=== PATIENT | female | born 1930 | race Caucasian/White ===

== ENCOUNTER 2018-03-17 07:04 | Emergency (ER) | payer OTHER ==
--- NOTE | 2018-03-17 08:14 | RAD REPORT ---
EXAM DESCRIPTION: CT - Head C Spine Cap Wo Con - 03/17/2018 7:54 am CLINICAL HISTORY: Trauma, head and neck injury. Chest, abdomen and pelvis pain. PAIN COMPARISON: Head Brain Wo Cont dated 08/29/2015; HEAD BRAIN W O CONTRAST dated 07/16/2014; CT-STROKE B RAIN W/O CONTRAST dated 02/17/2014 TECHNIQUE: CT head without contrast. CT cervical spine without contrast with coronal and sagittal reformatted images. CT chest, abdomen and pelvis without contrast with coronal and sagittal reformatted images of the [facility] [place]. All CT scans are performed using dose optimization technique as appropriate and may include automated exposure control or mA/KV adjustment according to patient size. FINDINGS: CT HEAD WITHOUT CONTRAST: No intracranial hemorrhage, hydrocephalus or extra-axial fluid collection. Moderate generalized brain atrophy is present with moderate periventricular and deep white matter chronic microvascular ischemi c changes. No areas of brain edema or midline shift. The paranasal sinuses and mastoids are clear. The calvarium is intact. CT CERVICAL SPINE WITHOUT CONTRAST: No fracture or subluxation. Spondylosis is present with endplate osteophytosis at C5-6. Minimal degen erative anterolisthesis of C6 on 7 is present. The prevertebral soft tissues are normal in thickness. CT CHEST, ABDOMEN, PELVIS WITHOUT CONTRAST: NOTE: Lack of contrast is a significant limitation in the assessment of trauma related findings. Spec ifically, solid organ, vascular and bowel evaluation is significantly limited. The lungs are emphysematous but clear.Prominent thyroid goiter is present.No pneumothorax or pericard ial/pleural fluid. No evidence of intra-abdominal visceral injury, free fluid or free air is seen within the above detai led limitations. No concerning pelvic findings. No fractures. IMPRESSION: Negative for acute traumatic findings within the above detailed limitations.
--- NOTE | 2018-03-17 08:22 | RAD REPORT ---
EXAM DESCRIPTION: RAD - Chest Single View - 03/17/2018 7:50 am CLINICAL HISTORY: COUGH Chest pain. COMPARISON: CHEST SINGLE VIEW dated 07/16/2014; CHEST SINGLE VIEW dated 02/18/2014; CHEST SINGLE VIEW dated 02/17/2014 FINDINGS: Portable technique limits examination quality. The lungs are grossly clear. The heart is mildly prominent in size. No displaced fractures. IMPRESSION: No acute intrathoracic process suspected.
[2018-03-17 09:45] LABS: Protime INR 1.03
[2018-03-17 09:48] LABS: Absolute Lymphocytes (CBC) 1.6 K/uL (0.7-4.9); Absolute Monocytes 0.6 K/uL (0.1-1.3); Absolute Neutrophil 3.8 K/uL (1.8-8.0); Basophils % 1.2 % (0-1.3); Eosinophils % 2.4 % (0-4.4); Hematocrit 36.7 % (36.0-45.0); MCH 30.7 pg (27.0-35.0); MCV 90.7 fL (80-100); MPV 8.5 fL (7.6-11.3); Monocytes % 9.9 % (3.3-12.3); RBC Red Blood Cell Count 4.05 M/uL (3.86-4.86)
[2018-03-17] MEDS ORDERED: NA CHLORIDE 0.9% 0 ML ONE (09:50)
[2018-03-17 10:09] LABS: ALT/SGPT 24 U/L (12-78); AST/SGOT 19 U/L (15-37); Albumin 3.8 g/dL (3.4-5.0); Alkaline Phosphatase 85 U/L (45-117); BUN Blood Urea Nitrogen 20 mg/dL (7-18); Bicarbonate 31 mmol/L (21-32); Bilirubin Direct 0.2 mg/dL (0-0.2); Bilirubin Total 0.6 mg/dL (0.2-1.0); Glucose Level 104 mg/dL (74-106); Magnesium 2.2 mg/dL (1.8-2.4); NT PRO-BNP 178 pg/mL (<450); Protein, Total 8.2 g/dL (6.4-8.2); Sodium Level 138 mmol/L (136-145); Troponin (Emerg Dept Use Only) < 0.02 ng/mL (0.0-0.045)
[2018-03-17] MEDS ORDERED: NA CHLORIDE 0.9% 250 ML ONE (10:10)
[2018-03-17] MEDS ORDERED: CEFTRIAXONE/SWI 1gm 1 GM/10 ML SYR ONE (10:10)
--- NOTE | 2018-03-17 10:20 | ER ---
Nurse's Notes [facility] Name: Kristen Cuba Age: 87 yrs Sex: Female : 1930 Arrival Date: 03/17/2018 Time: 07:06 Bed 18 Private MD: Diagnosis: Fall due to bumping against object;Dementia in other diseases classified elsewhere;Cystitis;Low back pain Presentation: 03/17 07:07 Presenting complaint:. 07:08 Presenting complaint: Patient states: I slid out of bed getting up this morning, landed ch on my bottom. my lower back hurts and my neck hurts. Presenting complaint: EMS states: pt was in her socks and slid down out of bed, landing on her bottom, then said she fell sideways. pt was still laying on the floor in an awkward position when we arrived, reported immediate relief after being repositioned. Transition of care: patient was not received from another setting of care. Onset of symptoms was March 17, 2018 at 06:45. Risk Assessment: Do you want to hurt yourself or someone else? Patient reports no desire to harm self or others. Initial Sepsis Screen: Does the patient meet any 2 criteria? No. Patient's initial sepsis screen is negative. Does the patient have a suspected source of infection? No. Patient's initial sepsis screen is negative. Care prior to arrival: None. 07:08 Method Of Arrival: Ambulatory 07:08 Acuity: SYL 4 07:19 Note family reports pt likes to crawl out of bed with the call cummings then hit the call cummings. she has been doing this for years. Historical: - Allergies: 07:27 Codeine; ch - Home Meds: 07:27 citalopram 20 mg tab 1 tab once daily [Active]; famotidine 20 mg Oral tab 1 tab 2 times ch per day [Active]; hydrochlorothiazide 12.5 mg Oral tab 1 tab 2 times per day [Active]; risperidone 1 mg oral tab 1 tab once daily [Active]; trazodone 50 mg Oral tab 1 tab nightly [Active]; meclizine 25 mg Oral tab 1 tab 3 times per day [Active]; - PMHx: 07:27 Dementia; breast cancer; Hypertension; Depression; masectomy L; GERD; Arthritis; ch Anxiety; TIA; Gout; - PSHx: 07:27 L sided masectomy; ch - Immunization history:: Adult Immunizations up to date. - Social history:: Smoking status: Patient/guardian denies using tobacco. - Ebola Screening: : Patient negative for fever greater than or equal to 101.5 degrees Fahrenheit, and additional compatible Ebola Virus Disease symptoms Patient denies exposure to infectious person Patient denies travel to an Ebola-affected area in the 21 days before illness onset No symptoms or risks identified at this time. Screenin:50 Abuse screen: Denies threats or abuse. Denies injuries from another. Nutritional ch screening: No deficits noted. Tuberculosis screening: No symptoms or risk factors identified. Fall Risk None identified. Assessment: 07:50 General: Appears in no apparent distress. comfortable, Behavior is calm, cooperative, ch appropriate for age. Pain: Complains of pain in buttocks and back Pain currently is 4 out of 10 on a pain scale. Pain began suddenly, Unable to use pain scale. pt has dementia and keeps changing location and amount of pain. Neuro: Level of Consciousness is awake, alert, obeys commands, Oriented to person, place, [employer] Supervisor are equal bilaterally Moves all extremities. Weakness in bilateral family reports that is normal, and this is how the pt usually moves and functions. Cardiovascular: Denies chest pain, shortness of breath. Respiratory: No deficits noted. Airway is patent Respiratory effort is even, unlabored. GI: No signs and/or symptoms were reported involving the gastrointestinal system. Abdomen is flat, non-distended, Bowel sounds present X 4 quads. Abd is soft and non tender X 4 quads. : No signs and/or symptoms were reported regarding the genitourinary system. Derm: Skin is intact, is fragile, is thin, Skin is dry, Skin is pale. Musculoskeletal: No signs and/or symptoms reported regarding the musculoskeletal system. Circulation, motion, and sensation intact. 09:19 Reassessment: Patient appears in no apparent distress at this time. No changes from previously documented assessment. Patient and/or family updated on plan of care and expected duration. Pain level reassessed. 10:39 Reassessment: Patient appears in no apparent distress at this time. Patient and/or ch family updated on plan of care and expected duration. Pain level reassessed. Patient states feeling better. Patient states symptoms have improved. Vital Signs: 07:27 BP 167 / 71; Pulse 55; Resp 18; Temp 98.3; Pulse Ox 99% on R/A; Weight 51.71 kg; Height 5 ft. 4 in. (162.56 cm); Pain 0/10; 07:50 BP 155 / 78; Pulse 61; Resp 18; Temp 98.3; Pulse Ox 99% on R/A; Pain 0/10; ch 09:19 BP 178 / 81; Pulse 59; Resp 20; Pulse Ox 99% on R/A; Pain 0/10; ch 10:39 BP 168 / 92; Pulse 55; Resp 14; Temp 97.9; Pulse Ox 99% on R/A; Pain 0/10; ch 07:27 Body Mass Index 19.57 (51.71 kg, 162.56 cm) ED Course: 07:06 Patient arrived in ED. ds1 07:06 Tracee Amin, RN is Primary Nurse. ch 07:12 Triage completed. 07:21 Dayton Shin MD is Attending Physician. [facility] 07:27 Arm band placed on left wrist. Patient placed in an exam room, on a stretcher, on pulse oximetry. 07:50 XRAY Chest (1 view) In Process Unspecified. EDMS 07:50 No apparent distress. Resting quietly. ch 07:50 Patient has correct armband on for positive identification. Fall risk band placed. ch Placed in gown. Bed in low position. Call light in reach. Side rails up X2. Adult w/ patient. Pulse ox on. NIBP on. Warm blanket given. 07:54 CT Traumagram (Head C Spine CAP wo con) In Process Unspecified. EDMS 07:54 CT completed. Patient tolerated procedure well. Patient moved to CT via stretcher. vr Patient moved back from CT. 08:09 EKG done, by obstetrics tech. reviewed by Dayton Shin MD. at1 08:35 No provider procedures requiring assistance completed. Missed attempt(s): 22 gauge in right forearm. antecubital area. attemped by Jill Regalado Bleeding controlled, band aid applied, catheter tip intact. 08:35 Initial lab(s) drawn, by ED staff, sent to lab. 08:35 Urine collected:. Straight cath inserted, using sterile technique, 16 Fr. Specimen obtained. pt output 1000 mL. 09:34 Lab(s) recollected, by me, sent to lab. Inserted saline lock: 22 gauge in right ch antecubital area, using aseptic technique. Blood collected. 10:39 IV discontinued, intact, bleeding controlled, No redness/swelling at site. Pressure dressing applied. Administered Medications: 10:05 Drug: Rocephin - (cefTRIAXone) 1 grams Route: IVPB; Infused Over: 30 mins; Site: right ch antecubital; 10:38 Follow up: IV Status: Completed infusion; IV Intake: 10ml 10:18 Drug: NS 0.9% 1000 ml Route: IV; Rate: 125 ml/hr; Site: right antecubital; 10:38 Follow up: IV Status: Completed infusion; IV Intake: 250ml Intake: 10:38 IV: 10ml; Total: 10ml. 10:38 IV: 250ml; Total: 260ml. Outcome: 10:20 Discharge ordered by . [facility] 10:39 Discharged to home via wheelchair, with family. 10:39 Condition: stable 10:39 Discharge instructions given to patient, family, Instructed on discharge instructions, follow up and referral plans. medication usage, Demonstrated understanding of instructions, follow-up care, medications, Prescriptions given X 1. 10:50 Patient left the ED. Signatures: Dispatcher [employer] Tracee Lobo, Dayton Mercado RN, ch, MD MD cha Sanford, Camilla ds1 Pita Phillips Amanda, grocery clerk selling EKG Tat1
--- NOTE | 2018-03-17 10:20 | EDPHYS ---
Physician Documentation [facility] Name: Kristen Cuba Age: 87 yrs Sex: Female : 1930 Arrival Date: 03/17/2018 Time: 07:06 Bed 18 Private MD: ED Physician Dayton Shin HPI: 03/17 07:38 This 87 yrs old Female presents to ER via Ambulatory with complaints of fall mike out of bed, dementia. 07:38 Details of fall: The patient fell from a height, off furniture, approximately 3 feet. mike Onset: The symptoms/episode began/occurred just prior to arrival, this morning. Associated injuries: The patient sustained injury to the head. Severity of symptoms: At their worst the symptoms were mild, in the emergency department the symptoms are unchanged. The patient has not experienced similar symptoms in the past. Historical: - Allergies: 07:27 Codeine; ch - Home Meds: 07:27 citalopram 20 mg tab 1 tab once daily [Active]; famotidine 20 mg Oral tab 1 tab 2 times ch per day [Active]; hydrochlorothiazide 12.5 mg Oral tab 1 tab 2 times per day [Active]; risperidone 1 mg oral tab 1 tab once daily [Active]; trazodone 50 mg Oral tab 1 tab nightly [Active]; meclizine 25 mg Oral tab 1 tab 3 times per day [Active]; - PMHx: 07:27 Dementia; breast cancer; Hypertension; Depression; masectomy L; GERD; Arthritis; ch Anxiety; TIA; Gout; - PSHx: 07:27 L sided masectomy; ch - Immunization history:: Adult Immunizations up to date. - Social history:: Smoking status: Patient/guardian denies using tobacco. - Ebola Screening: : Patient negative for fever greater than or equal to 101.5 degrees Fahrenheit, and additional compatible Ebola Virus Disease symptoms Patient denies exposure to infectious person Patient denies travel to an Ebola-affected area in the 21 days before illness onset No symptoms or risks identified at this time. ROS: 07:39 Constitutional: Negative for fever, chills, and weight loss, Eyes: Negative for injury, mike pain, redness, and discharge, ENT: Negative for injury, pain, and discharge, Neck: Negative for injury, pain, and swelling, Cardiovascular: Negative for chest pain, palpitations, and edema, Respiratory: Negative for shortness of breath, cough, wheezing, and pleuritic chest pain, Abdomen/GI: Negative for abdominal pain, nausea, vomiting, diarrhea, and constipation, : Negative for injury, bleeding, discharge, and swelling, MS/Extremity: Negative for injury and deformity, Skin: Negative for injury, rash, and discoloration, Psych: Negative for depression, anxiety, suicide ideation, homicidal ideation, and hallucinations, Allergy/Immunology: Negative for hives, rash, and allergies, Endocrine: Negative for neck swelling, polydipsia, polyuria, polyphagia, and marked weight changes, Hematologic/Lymphatic: Negative for swollen nodes, abnormal bleeding, and unusual bruising. 07:39 Back: Positive for pain at rest, pain with movement. 07:39 Neuro: Positive for altered mental status. Exam: 07:39 Constitutional: This is a well developed, well nourished patient who is awake, alert, mike and in no acute distress. Head/Face: Normocephalic, atraumatic. Eyes: Pupils equal round and reactive to light, extra-ocular motions intact. Lids and lashes normal. Conjunctiva and sclera are non-icteric and not injected. Cornea within normal limits. Periorbital areas with no swelling, redness, or edema. ENT: Nares patent. No nasal discharge, no septal abnormalities noted. Tympanic membranes are normal and external auditory canals are clear. Oropharynx with no redness, swelling, or masses, exudates, or evidence of obstruction, uvula midline. Mucous membranes moist. Neck: Trachea midline, no thyromegaly or masses palpated, and no cervical lymphadenopathy. Supple, full range of motion without nuchal rigidity, or vertebral point tenderness. No Meningismus. Chest/axilla: Normal chest wall appearance and motion. Nontender with no deformity. No lesions are appreciated. Cardiovascular: Regular rate and rhythm with a normal S1 and S2. No gallops, murmurs, or rubs. Normal PMI, no JVD. No pulse deficits. Respiratory: Lungs have equal breath sounds bilaterally, clear to auscultation and percussion. No rales, rhonchi or wheezes noted. No increased work of breathing, no retractions or nasal flaring. Abdomen/GI: Soft, non-tender, with normal bowel sounds. No distension or tympany. No guarding or rebound. No evidence of tenderness throughout. Back: No spinal tenderness. No costovertebral tenderness. Full range of motion. Skin: Warm, dry with normal turgor. Normal color with no rashes, no lesions, and no evidence of cellulitis. MS/ Extremity: Pulses equal, no cyanosis. Neurovascular intact. Full, normal range of motion. Psych: Awake, alert, with orientation to person, place and time. Behavior, mood, and affect are within normal limits. 07:39 Neuro: Orientation: is normal, appropriate for stated age, no acute changes, Mentation: slow to respond, Memory: no acute changes, Cranial nerves: grossly normal, is grossly normal based on the patient's age, no acute changes, Cerebellar function: is grossly normal, is grossly normal based on the patient's age, no acute changes, Motor: is normal, Gait: not applicable seizure activity, is not displayed by the patient. Vital Signs: 07:27 BP 167 / 71; Pulse 55; Resp 18; Temp 98.3; Pulse Ox 99% on R/A; Weight 51.71 kg; Height 5 ft. 4 in. (162.56 cm); Pain 0/10; 07:50 BP 155 / 78; Pulse 61; Resp 18; Temp 98.3; Pulse Ox 99% on R/A; Pain 0/10; ch 09:19 BP 178 / 81; Pulse 59; Resp 20; Pulse Ox 99% on R/A; Pain 0/10; ch 10:39 BP 168 / 92; Pulse 55; Resp 14; Temp 97.9; Pulse Ox 99% on R/A; Pain 0/10; 07:27 Body Mass Index 19.57 (51.71 kg, 162.56 cm) MDM: 07:21 Patient medically screened. [facility] 07:41 Data reviewed: vital signs, nurses notes, lab test result(s), EKG, radiologic studies, [facility] CT scan, plain films. 03/17 07:33 Order name: Basic Metabolic Panel; Complete Time: 10:19 [facility] 03/17 07:33 Order name: CBC with Diff; Complete Time: 10:19 [facility] 03/17 07:33 Order name: LFT's; Complete Time: 10:19 [facility] 03/17 07:33 Order name: Magnesium; Complete Time: 10:19 [facility] 03/17 07:33 Order name: NT PRO-BNP; Complete Time: 10:19 [facility] 03/17 07:33 Order name: PT-INR; Complete Time: 10:19 [facility] 03/17 07:33 Order name: Troponin (emerg Dept Use Only); Complete Time: 10:19 [facility] 03/17 07:33 Order name: XRAY Chest (1 view); Complete Time: 09:33 [facility] 03/17 07:33 Order name: EKG; Complete Time: 07:33 [facility] 03/17 07:33 Order name: CT Traumagram (Head C Spine CAP wo con); Complete Time: 09:33 [facility] 03/17 07:33 Order name: Urine Culture [facility] 03/17 10:32 Order name: Urine Dipstick--Ancillary (enter results) 03/17 07:33 Order name: Cardiac monitoring; Complete Time: 09:24 [facility] 03/17 07:33 Order name: EKG - Nurse/Tech; Complete Time: 09:24 [facility] 03/17 07:33 Order name: IV Saline Lock; Complete Time: 09:24 [facility] 03/17 07:33 Order name: Labs collected and sent; Complete Time: 09:24 [facility] 03/17 07:33 Order name: O2 Per Protocol; Complete Time: 09:24 [facility] 03/17 07:33 Order name: O2 Sat Monitoring; Complete Time: 09:24 [facility] 03/17 07:33 Order name: Urine Dipstick-Ancillary (obtain specimen); Complete Time: 09:22 [facility] Administered Medications: 10:05 Drug: Rocephin - (cefTRIAXone) 1 grams Route: IVPB; Infused Over: 30 mins; Site: right antecubital; 10:38 Follow up: IV Status: Completed infusion; IV Intake: 10ml 10:18 Drug: NS 0.9% 1000 ml Route: IV; Rate: 125 ml/hr; Site: right antecubital; 10:38 Follow up: IV Status: Completed infusion; IV Intake: 250ml Disposition: 03/17/18 10:20 Discharged to Home. Impression: Fall due to bumping against object, Dementia in other diseases classified elsewhere, Cystitis, Low back pain. - Condition is Stable. - Discharge Instructions: Dementia, Fall Prevention in the Home, Urinary Tract Infection, Adult, Dementia, [id number]. - Prescriptions for Cipro 250 mg Oral Tablet - take 1 tablet by ORAL route every 12 hours; 10 tablet. - Medication Reconciliation Form, Thank You Letter, Antibiotic Education, Prescription Opioid Use form. - Follow up: Private Physician; When: 2 - 3 days; Reason: Recheck today's complaints, Continuance of care, Re-evaluation by your physician. - Problem is new. - Symptoms have improved. Signatures: Dispatcher [employer] EDTracee Mcdaniel RN RN ch Anderson, Corey, MD MD cha Corrections: (The following items were deleted from the chart) 10:50 10:20 03/17/2018 10:20 Discharged to Home. Impression: Fall due to bumping against ch object; Dementia in other diseases classified elsewhere; Cystitis; Low back pain. Condition is Stable. Discharge Instructions: Dementia, Fall Prevention in the Home, Dementia, [id number], Urinary Tract Infection, Adult. Prescriptions for Cipro 250 mg Oral Tablet - take 1 tablet by ORAL route every 12 hours; 10 tablet. and Forms are Medication Reconciliation Form, Thank You Letter, Antibiotic Education, Prescription Opioid Use. Follow up: Private Physician; When: 2 - 3 days; Reason: Recheck today's complaints, Continuance of care, Re-evaluation by your physician. Problem is new. Symptoms have improved. mike
[2018-03-17 10:56] VITALS: O2SAT 99
[2018-03-17 10:59] VITALS: BP 168/92; TEMP 97.9
[2018-03-17 11:16] LABS: Urine Blood NEGATIVE (NEG); Urine Glucose NEGATIVE (NEG); Urine Protein NEGATIVE (NEG); Urine Specific Gravity 1.015 (1.005-1.030)
--- NOTE | 2018-03-17 11:22 | EKG ---
Test Date: 2018-03-17 Test Time: 08:02:28 Licensed Vocational Nurse: NAE MEASUREMENT RESULTS: Intervals: Rate: 62 CO: 148 QRSD: 134 QT: 440 QTc: 446 [place]: P: 62 CO: 148 QRS: -58 T: 42 INTERPRETIVE STATEMENTS: Normal sinus rhythm Right bundle branch block Left anterior fascicular block Bifascicular block Possible Lateral infarct, age undetermined Abnormal ECG Compared to ECG 07/17/2014 05:59:56 Sinus bradycardia no longer present Bifascicular block still present Myocardial infarct finding still present Electronically Signed On 03-17-18 11:21:47 CDT by Bjorn Gamble
== END 2018-03-17 10:50 | disposition home or self-care (01) ==
LOC: ER 07:04
DX: N30.90 Cystitis, unspecified without hematuria (principal); M54.5 Low back pain; W06.XXXA Fall from bed, initial encounter; Y93.9 Activity, unspecified; Y92.9 Unspecified place or not applicable; Z85.3 Personal history of malignant neoplasm of breast; Z88.5 Allergy status to narcotic agent; F03.90 Unspecified dementia, unspecified severity, without behavioral disturbance, psychotic disturbance, mood disturbance, and anxiety; I10 Essential (primary) hypertension; F32.9 Major depressive disorder, single episode, unspecified
CPT/HCPCS: 36415; 51702; 70450; 71045; 71250; 72125; 80048; 80076; 81003; 83735; 83880; 84484; 85025; 85610; 87086; 87088; 93005; 96365; 99285; J0696; J7030

== ENCOUNTER 2018-03-20 08:21 | Emergency (ER) | payer OTHER ==
--- NOTE | 2018-03-20 08:47 | RAD REPORT ---
EXAM DESCRIPTION: CT - Head Brain Wo Cont - 03/20/2018 8:40 am CLINICAL HISTORY: fall Head injury COMPARISON: Head Brain Wo Cont dated 08/29/2015; HEAD BRAIN W O CONTRAST dated 07/16/2014 TECHNIQUE: All CT scans are performed using dose optimization technique as appropriate and may inclu de automated exposure control or mA/KV adjustment according to patient size. FINDINGS: No intracranial hemorrhage, hydrocephalus or extra-axial fluid collection.Mild generalized brain atrophy is present with moderate periventricular and deep white matter chronic microvascular i schemic changes.No areas of brain edema or evidence of midline shift. Small mucous retention cyst versus polyps in the right maxillary antrum. The calvarium is intact. IMPRESSION: No acute intracranial abnormality.
--- NOTE | 2018-03-20 10:13 | RAD REPORT ---
EXAM DESCRIPTION: RAD - Pelvis - 03/20/2018 9:19 am CLINICAL HISTORY: Dizziness, fall, pelvic pain COMPARISON: None. TECHNIQUE: AP imaging of the pelvis was obtained. FINDINGS: No fracture of the bony pelvis. No fracture, dislocation or other acute hip joint finding. Bilateral hip joint degenerative changes present slightly worse on the right. SI joint and pubic sym physis degenerative changes also present. There are prominent lower lumbar degenerative changes prese nt that are incompletely visualized on pelvis protocol and due to overlying bowel. Sacral ala also mo stly obscured. Vascular calcifications are present. No soft tissue abnormality. IMPRESSION: Degenerative changes to the lower lumbar spine, SI joints and hip joints. No acute findi ngs seen.
--- NOTE | 2018-03-20 10:22 | RAD REPORT ---
EXAM DESCRIPTION: RAD - Femur Left - 03/20/2018 9:19 am CLINICAL HISTORY: Fall, knee pain COMPARISON: None. FINDINGS: No fracture is identified. There is no dislocation or periosteal reaction noted. No acute or suspicious bony finding. No AVN findings. Mild hip and knee joint degenerative changes are presen t generally less pronounced than seen on the right. No periarticular mass or hematoma. No new joint e ffusion suspected. IMPRESSION: Mild hip and knee degenerative change less severe than seen on the right. No acute bone or joint finding.
--- NOTE | 2018-03-20 10:22 | RAD REPORT ---
EXAM DESCRIPTION: RAD - Femur Right - 03/20/2018 9:19 am CLINICAL HISTORY: Fall, leg pain COMPARISON: None. FINDINGS: No fracture, dislocation or periosteal reaction noted. No AVN or focal femoral head abnorm ality. No acute destructive process seen. Knee joint degenerative changes are present. Patellofemoral and medial compartment narrowing noted. Trace amount of joint fluid is suspected. Femur examination does not represent thorough knee assessment. Acute bony abnormality is not suspected. No air or forei gn body in the soft tissues. IMPRESSION: Mild to moderate hip and knee degenerative changes are present. No acute bone or joint f inding confirmed.
--- NOTE | 2018-03-20 10:34 | RAD REPORT ---
EXAM DESCRIPTION: RAD - Knee Right 2 View - 03/20/2018 9:20 am CLINICAL HISTORY: Syncopal episode, fall, knee pain COMPARISON: None. FINDINGS: No fracture, dislocation or periosteal reaction.There is questionable trace joint effusion . Quadriceps tendon is slightly thickened at the attachment. No bone avulsion or acute patella findin g. There is patella femoral joint space narrowing and very minimal patella marginal spurring. Medial compartment is narrowed with minimal marginal spurs. Benign sclerotic focus is present in the posteri or midline femur. Arterial calcifications are present. No foreign body or soft tissue abnormality. IMPRESSION: No acute bone finding identified. Degenerative changes are present as detailed. There is questionable trace pleural fluid with thickening of the quadriceps tendon at the patella att achment. Quadriceps tendon injury is possible. Clinical concerns for internal derangement or occult bony injury could be further assessed with MR imaging.
--- NOTE | 2018-03-20 11:05 | ER ---
Nurse's Notes [facility] Name: Kristen Cuba Age: 87 yrs Sex: Female : 1930 Arrival Date: 03/20/2018 Time: 08:22 Bed 7 Private MD: Diagnosis: Contusion of right knee;Dementia in other diseases classified elsewhere Presentation: 03/20 08:23 Presenting complaint: EMS states: Pt c/o GRIFFIN and dizziness, she fell and is c/o right jl7 hip pain. Denies hitting head. Transition of care: patient was received from another setting of care (long-term care facility), [facility]. Onset of symptoms was March 20, 2018. Risk Assessment: Do you want to hurt yourself or someone else? Patient reports no desire to harm self or others. Initial Sepsis Screen: Does the patient meet any 2 criteria? No. Patient's initial sepsis screen is negative. Does the patient have a suspected source of infection? No. Patient's initial sepsis screen is negative. Care prior to arrival: None. 08:23 Method Of Arrival: EMS: [facility] 7 08:23 Acuity: SYL 3 jl7 Triage Assessment: 08:27 General: Appears in no apparent distress. uncomfortable, Behavior is calm, cooperative, jl7 appropriate for age. Pain: Complains of pain in right hip. Neuro: Level of Consciousness is awake, alert, obeys commands, Oriented to person, place. Cardiovascular: Patient's skin is warm and dry. Respiratory: Airway is patent Respiratory effort is even, unlabored, Respiratory pattern is regular, symmetrical. Derm: Skin is pink, warm \T\ dry. Musculoskeletal: Range of motion: intact in all extremities, Swelling absent No deformity noted. Historical: - Allergies: 08:27 Codeine; jl7 - Home Meds: 08:27 citalopram 20 mg tab 1 tab once daily [Active]; famotidine 20 mg Oral tab 1 tab 2 times jl7 per day [Active]; hydrochlorothiazide 12.5 mg Oral tab 1 tab 2 times per day [Active]; risperidone 1 mg Oral tab 1 tab once daily [Active]; trazodone 50 mg Oral tab 1 tab nightly [Active]; meclizine 25 mg Oral tab 1 tab 3 times per day [Active]; - PMHx: 08:27 Anxiety; Arthritis; breast cancer; Dementia; Depression; GERD; Gout; Hypertension; jl7 masectomy L; TIA; - PSHx: 08:27 L sided masectomy; jl7 - Immunization history:: Adult Immunizations up to date. - Social history:: Smoking status: Patient/guardian denies using tobacco. - Ebola Screening: : No symptoms or risks identified at this time. - Family history:: not pertinent. - Hospitalizations: : No recent hospitalization is reported. Screenin:30 Abuse screen: Denies threats or abuse. Denies injuries from another. Nutritional jl7 screening: No deficits noted. Tuberculosis screening: No symptoms or risk factors identified. Fall Risk Fall in past 12 months (25 points). Total Vick Fall Scale indicates Low Risk Score (25-44 pts). Fall prevention measures have been instituted. Side Rails Up X 2 Placed close to Nursing Station Frequent Obs/Assesments occuring As available Patient and Family Educated on Fall Prevention Program and strategies. Assessment: 08:30 General: See triage assessment. jl7 09:30 Reassessment: Pt back from radiology, family at bedside. jl7 10:30 Reassessment: Patient appears in no apparent distress at this time. No changes from jl7 previously documented assessment. Patient and/or family updated on plan of care and expected duration. Pain level reassessed. Patient is alert, oriented x 3, equal unlabored respirations, skin warm/dry/pink. Vital Signs: 08:27 BP 163 / 93; Pulse 69; Resp 16 S; Temp 97.7(O); Pulse Ox 100% ; jl7 09:30 BP 150 / 81; Pulse 74; Resp 16 S; Pulse Ox 100% on R/A; jl7 10:15 BP 151 / 82; Pulse 73; Resp 16 S; Pulse Ox 100% on R/A; jl7 11:15 BP 150 / 80; Pulse 76; Resp 16 S; Pulse Ox 100% on R/A; jl7 ED Course: 08:22 Patient arrived in ED. jl7 08:22 Luis Alberto Addison MD is Attending Physician. rn 08:24 Triage completed. jl7 08:27 Arm band placed on right wrist. Patient placed in an exam room, on a stretcher, on jl7 pulse oximetry. 08:30 Patient has correct armband on for positive identification. Placed in gown. Bed in low jl7 position. Call light in reach. Side rails up X2. Pulse ox on. NIBP on. Warm blanket given. 08:31 Anita Ramirez, RN is Primary Nurse. jl7 08:40 CT completed. Patient tolerated procedure well. Patient moved to CT via stretcher. Patient moved to radiology Patient moved back from CT. 08:40 CT Head Brain wo Cont In Process Unspecified. EDMS 09:20 XRAY Pelvis In Process Unspecified. EDMS 09:20 XRAY Femur RIGHT In Process Unspecified. EDMS 09:20 XRAY Femur LEFT In Process Unspecified. EDMS 09:20 XRAY Knee RIGHT 2 view In Process Unspecified. EDMS 09:36 EKG done, by test and turn up technician. reviewed by Luis Alberto Addison MD. at1 10:30 No provider procedures requiring assistance completed. Patient did not have IV access jl7 during this emergency room visit. 11:15 Cleaned of incontinence. jl7 Administered Medications: No medications were administered Outcome: 10:30 Discharged to home ambulatory, with family. jl7 10:30 Condition: stable 10:30 Discharge instructions given to patient, family, Instructed on discharge instructions, follow up and referral plans. Demonstrated understanding of instructions, follow-up care. 11:04 Discharge ordered by . rn 11:33 Patient left the ED. jl7 Signatures: Dispatcher [employer] Yamini Guaman Roman, MD MD rn Gonzales, Amanda, salesperson stereo equipment EKG Tat1 Anita Ramirez, RN RN [email or web address]
--- NOTE | 2018-03-20 11:05 | EDPHYS ---
Physician Documentation [facility] Name: Kristen Cuba Age: 87 yrs Sex: Female : 1930 Arrival Date: 03/20/2018 Time: 08:22 Bed 7 Private MD: ED Physician Luis Alberto Addison HPI: 03/20 08:34 This 87 yrs old Female presents to ER via EMS with complaints of Fall Injury. rn 08:34 Details of fall: The patient fell from an upright position. Onset: The symptoms/episode rn began/occurred just prior to arrival. Associated injuries: The patient sustained unclear, but patient reports pain to legs. Severity of symptoms: At their worst the symptoms were mild, in the emergency department the symptoms have improved. The patient has not experienced similar symptoms in the past. Per EMS, fall from standing, patient reports has been dizzy lately, taking meclizine, lost her balance, fell, no obvious head injury or pain but unsure, initial report from [facility] was right hip pain. Patient reports both legs hurt, mild, and right knee pain.. Historical: - Allergies: 08:27 Codeine; jl7 - Home Meds: 08:27 citalopram 20 mg tab 1 tab once daily [Active]; famotidine 20 mg Oral tab 1 tab 2 times jl7 per day [Active]; hydrochlorothiazide 12.5 mg Oral tab 1 tab 2 times per day [Active]; risperidone 1 mg Oral tab 1 tab once daily [Active]; trazodone 50 mg Oral tab 1 tab nightly [Active]; meclizine 25 mg Oral tab 1 tab 3 times per day [Active]; - PMHx: 08:27 Anxiety; Arthritis; breast cancer; Dementia; Depression; GERD; Gout; Hypertension; jl7 masectomy L; TIA; - PSHx: 08:27 L sided masectomy; jl7 - Immunization history:: Adult Immunizations up to date. - Social history:: Smoking status: Patient/guardian denies using tobacco. - Ebola Screening: : No symptoms or risks identified at this time. - Family history:: not pertinent. - Hospitalizations: : No recent hospitalization is reported. ROS: 08:34 Constitutional: Negative for fever, chills, and weight loss, Eyes: Negative for injury, rn pain, redness, and discharge, Neck: Negative for injury, pain, and swelling, Cardiovascular: Negative for chest pain, palpitations, and edema, Respiratory: Negative for shortness of breath, cough, wheezing, and pleuritic chest pain, Abdomen/GI: Negative for abdominal pain, nausea, vomiting, diarrhea, and constipation, Back: Negative for injury and pain, MS/Extremity: + right knee pain Skin: Negative for injury, rash, and discoloration, Neuro: Negative for headache, weakness, numbness, tingling, and seizure. Exam: 08:34 Constitutional: This is a well developed, well nourished patient who is awake, alert, rn and in no acute distress. Head/Face: Normocephalic, atraumatic. Eyes: Pupils equal round and reactive to light, extra-ocular motions intact. Lids and lashes normal. Conjunctiva and sclera are non-icteric and not injected. Cornea within normal limits. Periorbital areas with no swelling, redness, or edema. Neck: Trachea midline, no thyromegaly or masses palpated, and no cervical lymphadenopathy. Supple, full range of motion without nuchal rigidity, or vertebral point tenderness. No Meningismus. Cardiovascular: Regular rate and rhythm with a normal S1 and S2. No gallops, murmurs, or rubs. Normal PMI, no JVD. No pulse deficits. Respiratory: Lungs have equal breath sounds bilaterally, clear to auscultation and percussion. No rales, rhonchi or wheezes noted. No increased work of breathing, no retractions or nasal flaring. Abdomen/GI: soft, non-tender Back: No spinal tenderness. No costovertebral tenderness. Full range of motion. MS/ Extremity: Pulses equal, no cyanosis. Neurovascular intact. Full, normal range of motion. Equal circumference. Neuro: Awake, alert, moves all 4 extremities, sensation to soft touch and pain intact. Vital Signs: 08:27 BP 163 / 93; Pulse 69; Resp 16 S; Temp 97.7(O); Pulse Ox 100% ; jl7 09:30 BP 150 / 81; Pulse 74; Resp 16 S; Pulse Ox 100% on R/A; jl7 10:15 BP 151 / 82; Pulse 73; Resp 16 S; Pulse Ox 100% on R/A; jl7 11:15 BP 150 / 80; Pulse 76; Resp 16 S; Pulse Ox 100% on R/A; jl7 MDM: 08:22 Patient medically screened. rn 11:03 Differential diagnosis: closed head injury, contusion, fracture, sprain, strain. Data rn reviewed: vital signs, nurses notes, radiologic studies, CT scan, plain films, and as a result, I will discharge patient. Counseling: I had a detailed discussion with the patient and/or guardian regarding: the historical points, exam findings, and any diagnostic results supporting the discharge/admit diagnosis, radiology results, the need for outpatient follow up, to return to the emergency department if symptoms worsen or persist or if there are any questions or concerns that arise at home. Response to treatment: the patient's symptoms have mildly improved after treatment, and as a result, I will discharge patient. Special discussion: I discussed with the patient/guardian in detail that at this point there is no indication for admission to the hospital. It is understood, however, that if the symptoms persist or worsen the patient needs to return immediately for re-evaluation. 03/20 08:24 Order name: XRAY Pelvis; Complete Time: 10:39 rn 03/20 08:24 Order name: XRAY Femur RIGHT; Complete Time: 10:39 rn 03/20 08:24 Order name: XRAY Femur LEFT; Complete Time: 10:39 rn 03/20 08:24 Order name: CT Head Brain wo Cont; Complete Time: 09:43 rn 03/20 08:24 Order name: EKG; Complete Time: 08:24 rn 03/20 08:24 Order name: XRAY Knee RIGHT 2 view; Complete Time: 10:39 rn 03/20 08:24 Order name: EKG - Nurse/Tech; Complete Time: 09:24 rn Administered Medications: No medications were administered Disposition: 03/20/18 11:04 Discharged to Home. Impression: Contusion of right knee, Dementia in other diseases classified elsewhere. - Condition is Stable. - Discharge Instructions: Dementia, Knee Pain. - Medication Reconciliation Form, Thank You Letter, Antibiotic Education, Prescription Opioid Use form. - Follow up: Private Physician; When: As needed; Reason: Recheck today's complaints, Re-evaluation by your physician. - Problem is new. - Symptoms have improved. Signatures: Dispatcher [employer] EDMS Addison, Luis Alberto, MD MD rn Ramirez, Jahala, RN RN jl7 Corrections: (The following items were deleted from the chart) 11:33 11:04 03/20/2018 11:04 Discharged to Home. Impression: Contusion of right knee; jl7 Dementia in other diseases classified elsewhere. Condition is Stable. Forms are Medication Reconciliation Form, Thank You Letter, Antibiotic Education, Prescription Opioid Use. Follow up: Private Physician; When: As needed; Reason: Recheck today's complaints, Re-evaluation by your physician. Problem is new. Symptoms have improved. rn
[2018-03-20 11:44] VITALS: TEMP 97.7; O2SAT 100
[2018-03-20 11:47] VITALS: BP 150/80
--- NOTE | 2018-03-20 22:11 | EKG ---
Test Date: 2018-03-20 Test Time: 09:28:52 Park Interpretive Ranger: NAE MEASUREMENT RESULTS: Intervals: Rate: 77 MI: 170 QRSD: 136 QT: 444 QTc: 502 [place]: P: 75 MI: 170 QRS: -64 T: 55 INTERPRETIVE STATEMENTS: Normal sinus rhythm Right bundle branch block Left anterior fascicular block Bifascicular block possible Lateral infarct, age undetermined Abnormal ECG Compared to ECG 03/17/2018 08:02:28 Bifascicular block still present Myocardial infarct finding still present Electronically Signed On 03-20-18 22:10:19 CDT by Bjorn Gamble
== END 2018-03-20 11:33 | disposition home or self-care (01) ==
LOC: ER 08:21
DX: S80.01XA Contusion of right knee, initial encounter (principal); F03.90 Unspecified dementia, unspecified severity, without behavioral disturbance, psychotic disturbance, mood disturbance, and anxiety; W19.XXXA Unspecified fall, initial encounter
CPT/HCPCS: 70450; 72170; 93005; 99284

== ENCOUNTER 2018-03-22 17:40 | Emergency (ER) | payer OTHER ==
[2018-03-22 18:16] LABS: Absolute Lymphocytes (CBC) 1.8 K/uL (0.7-4.9); Absolute Monocytes 0.8 K/uL (0.1-1.3); Absolute Neutrophil 4.6 K/uL (1.8-8.0); Basophils % 0.7 % (0-1.3); Eosinophils % 3.5 % (0-4.4); Hematocrit 33.5 % (36.0-45.0); Lymphocytes % 23.9 % (15.3-44.8); MCH 30.5 pg (27.0-35.0); MCV 89.4 fL (80-100); MPV 8.3 fL (7.6-11.3); Monocytes % 10.8 % (3.3-12.3); RBC Red Blood Cell Count 3.75 M/uL (3.86-4.86)
[2018-03-22 18:28] LABS: Potassium 3.3 mmol/L (3.5-5.1)
--- NOTE | 2018-03-22 18:59 | RAD REPORT ---
EXAM DESCRIPTION: CT - Head C Spine Cap Leighton Merrill - 03/22/2018 6:39 pm CLINICAL HISTORY: Head and neck injury with chest and abdominal pain status post fall.. Head and nec k pain . TECHNIQUE: Computed axial tomography of the head and cervical spine was obtained Computed axial tomography of the chest, abdomen and pelvis was obtained. 100 cc Isovue-300 was given intravenously coronal and sagittal reconstruction was performed. All CT scans are performed using dose optimization technique as appropriate and may include automated exposure control or mA/KV adjustment according to patient size. COMPARISON: CT trauma March 17, 2018 FINDINGS: An intracranial bleed is not seen. The ventricles are normal in caliber. An extra-axial fl uid collection is not noted. A cervical fracture is not seen. No dislocation is seen. A mediastinal hematoma is not noted. A pleural effusion is not present. A lung contusion is not seen. The liver, spleen, pancreas, adrenals, kidneys and bladder do not demonstrate a traumatic injury. Thyroid goiter is present. The pancreas is atrophic. IMPRESSION: 1. No acute intracranial abnormality is seen 2. A cervical fracture is not visualized. If the patient continues have symptoms to suggest intracran ial/spinal cord pathology then MRI would be recommended. 3. No traumatic injury involving the chest, abdomen or pelvis is seen.
--- NOTE | 2018-03-22 19:20 | RAD REPORT ---
EXAM DESCRIPTION: RAD - Elbow Left 3 View - 03/22/2018 7:09 pm CLINICAL HISTORY: Left elbow pain status post trauma FINDINGS: Posterior dislocation involves the elbow. No gross fracture is seen
[2018-03-22] MEDS ORDERED: FENTANYL CITR 100 MCG/2 ML ONE (19:50)
--- NOTE | 2018-03-22 20:02 | ER ---
Nurse's Notes [facility] Name: Kristen Cuba Age: 87 yrs Sex: Female : 1930 Arrival Date: 03/22/2018 Time: 17:46 Bed 13 Private MD: Diagnosis: Dislocation and sprain of joints and ligaments of elbow;Fall on same level from slipping, tripping and stumbling with subsequent striking against unspecified object;Superficial injury of head Presentation: 03/22 17:48 Presenting complaint: EMS states: Tripped while in bathroom trying to put brief on, hb landed on right side with head on tile shower floor. Unknown LOC, c/o severe left elbow pain. Hx dementia, AO 1-2 at baseline. 22g RIGHT AC, Toradol 30 mg IVP administered LACTATION CONSULTANT. Care prior to arrival: Placed on backboard. Medication(s) given: Toradol 30mg IVP IV initiated. 22 GA, in the right antecubital area. Mechanism of Injury: Fall from standing position. Trauma event details: Injury occurred in the [facility], Injury occurred: at home. Injury occurred: March 22, 2018. 17:48 Acuity: SYL 2 hb 17:48 Method Of Arrival: EMS: [facility] hb 18:00 Initial Sepsis Screen: Does the patient meet any 2 criteria? No. Patient's initial hb sepsis screen is negative. Does the patient have a suspected source of infection? No. Patient's initial sepsis screen is negative. 18:00 Transition of care: patient was not received from another setting of care. Onset of hb symptoms was March 22, 2018. Risk Assessment: Do you want to hurt yourself or someone else? Patient reports no desire to harm self or others. Trauma Activation: Alert Physician: ED Physician; Name: ; Notified At: ; Arrived At: Physician: General Surgeon; Name: ; Notified At: ; Arrived At: Physician: Radiology; Name: ; Notified At: ; Arrived At: Physician: Respiratory; Name: ; Notified At: ; Arrived At: Physician: Lab; Name: ; Notified At: ; Arrived At: Historical: - Allergies: 17:54 Codeine; hb - Home Meds: 17:54 citalopram 20 mg tab 1 tab once daily [Active]; famotidine 20 mg Oral tab 1 tab 2 times hb per day [Active]; hydrochlorothiazide 12.5 mg Oral tab 1 tab 2 times per day [Active]; meclizine 25 mg Oral tab 1 tab 3 times per day [Active]; risperidone 1 mg Oral tab 1 tab once daily [Active]; trazodone 50 mg Oral tab 1 tab nightly [Active]; - PMHx: 17:54 Anxiety; Arthritis; breast cancer; Dementia; Depression; GERD; Gout; Hypertension; hb masectomy L; TIA; - PSHx: 17:54 L sided masectomy; hb - Immunization history: Last tetanus immunization: unknown. - Social history:: Smoking status: Patient/guardian denies using tobacco. - Ebola Screening: : No symptoms or risks identified at this time. Screenin:53 Abuse screen: Denies threats or abuse. Denies injuries from another. Nutritional hb screening: No deficits noted. Tuberculosis screening: No symptoms or risk factors identified. Fall Risk Total Vick Fall Scale indicates High Risk Score (45 or more points). Fall prevention measures have been instituted. Side Rails Up X 2 Frequent Obs/Assessments Occuring Family Present and informed to notify staff if the need to leave the bedside As available patient and family educated on Fall Prevention Program and Strategies. Primary Survey: 17:50 A: Airway: patent, No supplemental oxygen in use on arrival. Breathing/Chest: hb Respiratory pattern: regular, Respiratory effort: spontaneous, unlabored, Chest inspection: symmetrical rise and fall of the chest. Circulation: Skin color: pink, Skin temperature: warm, dry. Disability Alert. 19:00 Reassessment Breathing/Chest Respiratory pattern Regular Respiratory effort Spontaneous jb4 Unlabored Breath sounds Clear Chest inspection Symmetrical. Secondary Survey: 17:52 HEENT: No deficits noted. Gastrointestinal: No deficits noted. : No deficits noted. hb No signs and/or symptoms were reported regarding the genitourinary system. Musculoskeletal: Reports pain in left arm and left elbow. Assessment: 17:55 General: Appears in no apparent distress. Behavior is calm, cooperative. Pain: Pain hb currently is 8 out of 10 on a pain scale. Neuro: Level of Consciousness is awake, alert, obeys commands, Oriented to person, place. EENT: No signs and/or symptoms were reported regarding the EENT system. Cardiovascular: Capillary refill < 3 seconds Patient's skin is warm and dry. Respiratory: Airway is patent Trachea midline Respiratory effort is even, unlabored, Respiratory pattern is regular, symmetrical, Breath sounds are clear bilaterally. GI: No signs and/or symptoms were reported involving the gastrointestinal system. : No signs and/or symptoms were reported regarding the genitourinary system. Derm: Skin is pink, warm \T\ dry. Musculoskeletal: Reports pain in left arm and left elbow. 18:00 Reassessment: I agree with the above assessment. rb1 19:00 Reassessment: Patient appears in no apparent distress at this time. Patient and/or jb4 family updated on plan of care and expected duration. Pain level reassessed. Pt is alert, A\T\O x2. respirations are even and unlabored. 20:00 Reassessment: Patient appears in no apparent distress at this time. No changes from jb4 previously documented assessment. Patient and/or family updated on plan of care and expected duration. Pain level reassessed. Vital Signs: 17:47 BP 147 / 108; Pulse 77; Resp 16; Pulse Ox 97% on R/A; Pain 8/10; hb 18:44 BP 168 / 83; Pulse 76; Resp 16; Pulse Ox 96% on R/A; rb1 19:58 BP 150 / 80; Pulse 77; Resp 16; Pulse Ox 95% on R/A; mt Wily Coma Score: 18:00 Eye Response: spontaneous(4). Verbal Response: confused(4). Motor Response: obeys rb1 commands(6). Total: 14. 19:00 Eye Response: spontaneous(4). Verbal Response: confused(4). Motor Response: obeys rb1 commands(6). Total: 14. 18:00 A \T\ O x 1-2 is the pt. baseline. rb1 19:00 A \T\ O x 1- 2 is pt. bedside. rb1 Trauma Score (Adult): 17:47 Eye Response: spontaneous(1); Verbal Response: confused(1); Motor Response: obeys hb commands(2); Systolic BP: > 89 mm Hg(4); Respiratory Rate: 10 to 29 per min(4); Austin Score: 14; Trauma Score: 12 20:00 Eye Response: spontaneous(1); Verbal Response: confused(1); Motor Response: obeys jb4 commands(2); Systolic BP: > 89 mm Hg(4); Respiratory Rate: 10 to 29 per min(4); Austin Score: 14; Trauma Score: 12; Pt is at her baseline. ED Course: 17:46 Patient arrived in ED. em1 17:52 Triage completed. hb 17:53 Arm band placed on right wrist. hb 17:54 Patient has correct armband on for positive identification. Placed in gown. Bed in low hb position. Call light in reach. Side rails up X2. 17:54 Patient maintains SpO2 saturation greater than 95% on room air. Thermoregulation: warm hb blanket given to patient. 18:05 [place] Dale PA is PHCP. cp 18:05 Derrick Aguilar MD is Attending Physician. cp 18:10 Neena Alvarado, RN is Primary Nurse. rb1 18:38 CT completed. Patient tolerated procedure well. Patient moved back from CT. sj 18:39 CT Traumagram (Head C Spine CAP W Con) In Process Unspecified. EDMS 18:47 Saira Perales FNP-C is PHCP. snw 19:09 Elbow Left 3 View XRAY In Process Unspecified. EDMS 20:12 Elbow Left 3 View XRAY In Process Unspecified. EDMS 20:13 X-ray completed. Portable x-ray completed in exam room. Patient tolerated procedure mh1 well. 20:20 No provider procedures requiring assistance completed. Assist provider with reduction jb4 of left elbow using manipulation, Performed by Saira VARGAS. 20:20 IV discontinued, intact, bleeding controlled. jb4 Administered Medications: 19:49 Drug: fentaNYL (PF) 25 mcg Route: IVP; Site: right antecubital; jb4 Outcome: 20:01 Discharge ordered by . snneel 20:20 Discharged to Rehab Facility jb4 20:20 Condition: stable 20:20 Discharge instructions given to patient, family, Instructed on discharge instructions, follow up and referral plans. Demonstrated understanding of instructions, follow-up care. 20:29 Patient left the ED. jb4 Signatures: Dispatcher [employer] EDMS Saira Perales FNP-C EMERGENCY VETERINARY ASSISTANT-Cs[facility] Xin Paz mh1 Yamini Lorenzo Eric em1 Dayton Dale PA PA cp Neena Alvarado, DANNIE RN [facility] Valentina Mejia RN RN Trenton Calderon, RN RN jb4 Graciela Vora sc
--- NOTE | 2018-03-22 20:02 | EDPHYS ---
Physician Documentation [facility] Name: Kristen Cuba Age: 87 yrs Sex: Female : 1930 Arrival Date: 03/22/2018 Time: 17:46 Bed 13 Private MD: ED Physician Derrick Aguilar HPI: 03/22 18:07 This 87 yrs old Female presents to ER via EMS with complaints of Fall Injury. snw 18:07 Details of fall: The patient fell from an upright position, showering. Onset: The snw symptoms/episode began/occurred suddenly, just prior to arrival. Associated injuries: The patient sustained left elbow, contusion, decreased range of motion, painful injury. The patient has not experienced similar symptoms in the past. It is unknown whether or not the patient has recently seen a physician. unknown LOC. Historical: - Allergies: 17:54 Codeine; hb - Home Meds: 17:54 citalopram 20 mg tab 1 tab once daily [Active]; famotidine 20 mg Oral tab 1 tab 2 times hb per day [Active]; hydrochlorothiazide 12.5 mg Oral tab 1 tab 2 times per day [Active]; meclizine 25 mg Oral tab 1 tab 3 times per day [Active]; risperidone 1 mg Oral tab 1 tab once daily [Active]; trazodone 50 mg Oral tab 1 tab nightly [Active]; - PMHx: 17:54 Anxiety; Arthritis; breast cancer; Dementia; Depression; GERD; Gout; Hypertension; hb masectomy L; TIA; - PSHx: 17:54 L sided masectomy; hb - Immunization history: Last tetanus immunization: unknown. - Social history:: Smoking status: Patient/guardian denies using tobacco. - Ebola Screening: : No symptoms or risks identified at this time. ROS: 18:06 Constitutional: Negative for fever, chills, and weight loss, Eyes: Negative for injury, snw pain, redness, and discharge, ENT: Negative for injury, pain, and discharge, Neck: Negative for injury, pain, and swelling, Cardiovascular: Negative for chest pain, palpitations, and edema, Respiratory: Negative for shortness of breath, cough, wheezing, and pleuritic chest pain, Abdomen/GI: Negative for abdominal pain, nausea, vomiting, diarrhea, and constipation, Back: Negative for injury and pain, : Negative for injury, bleeding, discharge, and swelling, Skin: Negative for injury, rash, and discoloration, Neuro: Negative for headache, weakness, numbness, tingling, and seizure. 18:06 MS/extremity: Positive for injury or acute deformity, decreased range of motion, pain, of the left elbow. Exam: 18:05 Constitutional: This is a well developed, well nourished patient who is awake, alert, snw and in no acute distress. Head/Face: Normocephalic, atraumatic. Eyes: Pupils equal round and reactive to light, extra-ocular motions intact. Lids and lashes normal. Conjunctiva and sclera are non-icteric and not injected. Cornea within normal limits. Periorbital areas with no swelling, redness, or edema. ENT: Nares patent. No nasal discharge, no septal abnormalities noted. Tympanic membranes are normal and external auditory canals are clear. Oropharynx with no redness, swelling, or masses, exudates, or evidence of obstruction, uvula midline. Mucous membranes moist. Neck: Trachea midline, no thyromegaly or masses palpated, and no cervical lymphadenopathy. Supple, full range of motion without nuchal rigidity, or vertebral point tenderness. No Meningismus. Chest/axilla: Normal chest wall appearance and motion. Nontender with no deformity. No lesions are appreciated. Cardiovascular: Regular rate and rhythm with a normal S1 and S2. No gallops, murmurs, or rubs. Normal PMI, no JVD. No pulse deficits. Respiratory: Lungs have equal breath sounds bilaterally, clear to auscultation and percussion. No rales, rhonchi or wheezes noted. No increased work of breathing, no retractions or nasal flaring. Abdomen/GI: Soft, non-tender, with normal bowel sounds. No distension or tympany. No guarding or rebound. No evidence of tenderness throughout. Back: No spinal tenderness. No costovertebral tenderness. Full range of motion. Skin: Warm, dry with normal turgor. Normal color with no rashes, no lesions, and no evidence of cellulitis. Neuro: Awake and alert, GCS 15, oriented to person, place, time, and situation. Cranial nerves II-XII grossly intact. Motor strength 5/5 in all extremities. Sensory grossly intact. Cerebellar exam normal. Normal gait. Psych: Awake, alert, with orientation to person, place and time. Behavior, mood, and affect are within normal limits. 18:05 Musculoskeletal/extremity: Extremities: grossly normal except: noted in the left elbow: contusion, decreased ROM, tenderness. Vital Signs: 17:47 BP 147 / 108; Pulse 77; Resp 16; Pulse Ox 97% on R/A; Pain 8/10; hb 18:44 BP 168 / 83; Pulse 76; Resp 16; Pulse Ox 96% on R/A; rb1 19:58 BP 150 / 80; Pulse 77; Resp 16; Pulse Ox 95% on R/A; mt Wily Coma Score: 18:00 Eye Response: spontaneous(4). Verbal Response: confused(4). Motor Response: obeys rb1 commands(6). Total: 14. 19:00 Eye Response: spontaneous(4). Verbal Response: confused(4). Motor Response: obeys rb1 commands(6). Total: 14. 18:00 A \T\ O x 1-2 is the pt. baseline. rb1 19:00 A \T\ O x 1- 2 is pt. bedside. rb1 Trauma Score (Adult): 17:47 Eye Response: spontaneous(1); Verbal Response: confused(1); Motor Response: obeys hb commands(2); Systolic BP: > 89 mm Hg(4); Respiratory Rate: 10 to 29 per min(4); Dyer Score: 14; Trauma Score: 12 20:00 Eye Response: spontaneous(1); Verbal Response: confused(1); Motor Response: obeys jb4 commands(2); Systolic BP: > 89 mm Hg(4); Respiratory Rate: 10 to 29 per min(4); Wily Score: 14; Trauma Score: 12; Pt is at her baseline. Procedures: 19:56 Reduction: of the left elbow, using traction, Immobilized with sling, Patient tolerated snw well. MDM: 18:05 Patient medically screened. cp 18:07 Data reviewed: vital signs, nurses notes. Data interpreted: Pulse oximetry: on room air snw is 97 %. Interpretation: normal. Counseling: I had a detailed discussion with the patient and/or guardian regarding: the historical points, exam findings, and any diagnostic results supporting the discharge/admit diagnosis, the presence of at least one elevated blood pressure reading (>120/80) during this emergency department visit. ED course: Pt adjusted so backboard could be removed. Pt to CT via stretcher. 03/22 17:50 Order name: CBC with Diff; Complete Time: 18:22 snw 03/22 17:50 Order name: Chem 7; Complete Time: 18:39 snw 03/22 17:50 Order name: Elbow Left 3 View XRAY; Complete Time: 19:23 snw 03/22 17:50 Order name: CT Traumagram (Head C Spine CAP W Con); Complete Time: 18:59 snw 03/22 19:56 Order name: Elbow Left 3 View XRAY snw 03/22 19:57 Order name: Sling; Complete Time: 20:23 snw Administered Medications: 19:49 Drug: fentaNYL (PF) 25 mcg Route: IVP; Site: right antecubital; jb4 Disposition: 03/23 10:48 Co-signature as Attending Physician, Derrick Aguilar MD I agree with the assessment and kdr plan of care. Disposition: 03/22/18 20:01 Discharged to Home. Impression: Dislocation and sprain of joints and ligaments of elbow, Fall on same level from slipping, tripping and stumbling with subsequent striking against unspecified object, Superficial injury of head. - Condition is Stable. - Discharge Instructions: Elbow Dislocation, Head Injury, Adult, RICE for Routine Care of Injuries, How to Use a Sling. - Medication Reconciliation Form, Thank You Letter, Antibiotic Education, Prescription Opioid Use form. - Follow up: Private Physician; When: 2 - 3 days; Reason: Recheck today's complaints, Continuance of care, Re-evaluation by your physician. Follow up: Emergency Department; When: As needed; Reason: Worsening of condition. Signatures: Dispatcher [employer] EDDerrick Youngblood MD MD kdr Therrien, Shelly, RELIGIOUS ACTIVITIES DIRECTOR-C RELIGIOUS ACTIVITIES DIRECTOR-[facility] [place] PA PA cp Baxter, Heather, RN RN Trenton Saucedo RN RN jb4 Corrections: (The following items were deleted from the chart) 03/22 20:29 20:01 03/22/2018 20:01 Discharged to Home. Impression: Dislocation and sprain of joints jb4 and ligaments of elbow; Fall on same level from slipping, tripping and stumbling with subsequent striking against unspecified object; Superficial injury of head. Condition is Stable. Discharge Instructions: Elbow Dislocation, Head Injury, Adult, RICE for Routine Care of Injuries, How to Use a Sling. Forms are Medication Reconciliation Form, Thank You Letter, Antibiotic Education, Prescription Opioid Use. Follow up: Private Physician; When: 2 - 3 days; Reason: Recheck today's complaints, Continuance of care, Re-evaluation by your physician. Follow up: Emergency Department; When: As needed; Reason: Worsening of condition. snw
[2018-03-22 20:36] VITALS: BP 150/80; O2SAT 95
--- NOTE | 2018-03-22 20:50 | RAD REPORT ---
EXAM DESCRIPTION: RAD - Elbow Left 3 View - 03/22/2018 8:12 pm CLINICAL HISTORY: Left elbow dislocation FINDINGS: Previously described dislocation has been reduced. A joint effusion is present. A fracture is not visualized
== END 2018-03-22 20:29 | disposition home or self-care (01) ==
LOC: ER 17:40
PROC: 0RSMXZZ Reposition Left Elbow Joint, External Approach (ICD-10-PCS; principal; 2018-03-22)
DX: S53.105A Unspecified dislocation of left ulnohumeral joint, initial encounter (principal); W18.2XXA Fall in (into) shower or empty bathtub, initial encounter; Y93.E1 Activity, personal bathing and showering; Y92.002 Bathroom of unspecified non-institutional (private) residence as the place of occurrence of the external cause; Z85.3 Personal history of malignant neoplasm of breast; Z88.5 Allergy status to narcotic agent; I10 Essential (primary) hypertension; F03.90 Unspecified dementia, unspecified severity, without behavioral disturbance, psychotic disturbance, mood disturbance, and anxiety
CPT/HCPCS: 24600; 36415; 70450; 71260; 72125; 73080 ×2; 74177; 80048; 85025; 96374; 99285; J3010; Q9967